=== PATIENT | male | born 1955 | race African-American/Black ===

== ENCOUNTER 2019-07-09 08:57 | Emergency (ER) | payer MEDICARE, MEDICAID ==
[~2019-07-09] VITALS: Ht 195.6 cm; Wt 99.8 kg
[2019-07-09 09:43] VITALS: BP 118/60
[2019-07-09] MEDS ORDERED: HYDROcodone-ACET 10/325MG TAB PO ONE (10:00)
== END 2019-07-09 10:07 | disposition home or self-care (01) ==
LOC: ER 08:57
DX: G89.29 Other chronic pain (principal); Z76.0 Encounter for issue of repeat prescription; Z85.830 Personal history of malignant neoplasm of bone; Z85.46 Personal history of malignant neoplasm of prostate

== ENCOUNTER 2019-07-11 13:15 | Emergency (ER) | payer MEDICARE, MEDICAID ==
[~2019-07-11] VITALS: Ht 195.6 cm; Wt 99.8 kg
[2019-07-11 13:47] VITALS: BP 110/65
== END 2019-07-11 14:21 | disposition home or self-care (01) ==
LOC: ER 13:15
DX: G89.4 Chronic pain syndrome (principal); Z76.0 Encounter for issue of repeat prescription